=== PATIENT | male | born 1955 | race Caucasian/White ===

== ENCOUNTER → 2019-12-14 09:11 | Outpatient (CLI) | payer BC, SELFPAY ==
[2019-12-14 11:13] LABS: Alanine Aminotransferase 24 U/L (12-78); Albumin Level 4.1 g/dl (3.5-5.0); Albumin/Globulin Ratio 1.6 (1.1-1.8); Alkaline Phosphatase 89 U/L (38-126); Anion Gap 12.5 mEq/L (5-15); Aspartate Amino Transferase 33 U/L (17-59); Blood Urea Nitrogen 15 mg/dl (9-20); Calcium 9.5 mg/dl (8.4-10.2); Carbon Dioxide 27 mmol/L (22.0-30.0); Chloride 104 mmol/L (98-107); Chol/HDL Ratio 3.7 (1-3.5); Cholesterol 185 mg/dl (140-200); Estimated Glomerular Filt Rate 67 ml/min (>60); GFR (African American) 81 ML/MIN (>60); Globulin 2.6 g/dL (1.3-3.2); Glucose 85 mg/dl (74-100); HDL Cholesterol 50 mg/dl (40-60); Potassium 4.5 mmoL/L (3.5-5.1); Sodium 139 mmol/L (136-145); Total Protein,Serum 6.7 g/dl (6.3-8.2); Triglycerides 176 mg/dl (30-150); Uric Acid 5.6 mg/dl (3.5-8.5); VLDL Cholesterol 35 mg/dL (0-40)
[2019-12-14 11:24] LABS: Direct LDL Cholesterol 113.99 mg/dL (100-129)
== END ==
PROVIDERS: Visit Provider Family Medicine
DX: I10 Essential (primary) hypertension (principal); E78.5 Hyperlipidemia, unspecified; E79.0 Hyperuricemia without signs of inflammatory arthritis and tophaceous disease
CPT/HCPCS: 36415; 80053; 80061; 84550

== ENCOUNTER → 2020-07-13 09:32 | Outpatient (CLI) | payer BC, SELFPAY ==
[2020-07-13 10:31] LABS: Basophils % 0.5 % (0.1-2.0); Eosinophils # 0.2 K/mm3 (0.0-0.4); Eosinophils % 3.3 % (0.1-12.0); Hemoglobin 16.3 g/dL (14.1-18.0); Lymphocytes # 1.2 K/mm3 (0.7-4.5); Lymphocytes % 24.4 % (10-50); Mean Corpuscular HGB Conc 32.6 g/dL (31.8-35.4); Mean Corpuscular Volume 91.7 fl (80-94); Mean Platelet Volume 8.3 fl (7.4-10.4); Monocytes # 0.4 K/mm3 (0.1-1.0); Monocytes % 7.5 % (1.7-9.3); Neutrophils # 3.3 K/mm3 (1.8-7.8); Neutrophils % 64.3 % (37.0-80.0); Platelet Count 204 K/mm3 (142-424); Red Blood Count 5.45 M/mm3 (4.60-6.20); Red Cell Distribution Width 14.1 % (11.5-17.5); White Blood Count 5.1 K/mm3 (4.8-10.8)
[2020-07-13 11:19] LABS: Hemoglobin A1C 5.6 % (4.0-6.0)
[2020-07-13 11:20] LABS: Chol/HDL Ratio 3.6 (1-3.5); Cholesterol 164 mg/dl (140-200); HDL Cholesterol 45 mg/dl (40-60); Triglycerides 104 mg/dl (30-150); VLDL Cholesterol 21 mg/dL (0-40)
[2020-07-13 11:31] LABS: Direct LDL Cholesterol 96.07 mg/dL (100-129)
[2020-07-13 11:51] LABS: Prostate Specific Ag Screen 0.3 ng/ml (0.0-4.0)
[2020-07-14 15:20] LABS: LH 2.7 mIU/mL (1.7-8.6)
[2020-07-19 14:01] LABS: Testosterone, Total, LC/MS 261.8 ng/dL (264.0-916.0)
== END ==
PROVIDERS: Visit Provider General Practice
DX: E78.5 Hyperlipidemia, unspecified (principal); E29.1 Testicular hypofunction
CPT/HCPCS: 36415; 80061; 83002; 83036; 84403; 85025; G0103

== ENCOUNTER → 2021-06-25 07:50 | Outpatient (CLI) | payer BC, SELFPAY ==
[2021-06-25 08:26] LABS: Hematocrit 54.3 % (42.0-52.0); Hemoglobin 17.2 g/dL (14.1-18.0); Mean Corpuscular HGB Conc 31.7 g/dL (31.8-35.4); Mean Corpuscular Hemoglobin 31.7 pg (27.0-31.2); Platelet Count 220 K/mm3 (142-424); Red Blood Count 5.42 M/mm3 (4.60-6.20); Red Cell Distribution Width 14.1 % (11.5-17.5); White Blood Count 5.7 K/mm3 (4.8-10.8)
[2021-06-25 10:01] LABS: Hemoglobin A1C 5.6 % (4.0-6.0)
[2021-06-25 10:03] LABS: Alanine Aminotransferase 28 U/L (12-78); Albumin Level 4.6 g/dl (3.5-5.0); Albumin/Globulin Ratio 1.8 (1.1-1.8); Alkaline Phosphatase 81 U/L (38-126); Anion Gap 13.6 mEq/L (5-15); Aspartate Amino Transferase 36 U/L (17-59); Bilirubin,Total 1.2 mg/dl (0.2-1.3); Blood Urea Nitrogen 21 mg/dl (9-20); Calcium 9.5 mg/dl (8.4-10.2); Carbon Dioxide 25 mmol/L (22.0-30.0); Chloride 106 mmol/L (98-107); Estimated Glomerular Filt Rate 51 ml/min (>60); GFR (African American) 61 ML/MIN (>60); Globulin 2.6 g/dL (1.3-3.2); Glucose 87 mg/dl (74-100); Potassium 4.6 mmoL/L (3.5-5.1); Sodium 140 mmol/L (136-145); Total Protein,Serum 7.2 g/dl (6.3-8.2)
[2021-06-25 10:05] LABS: Chol/HDL Ratio 4.4 (1-3.5); Cholesterol 205 mg/dl (140-200); HDL Cholesterol 47 mg/dl (40-60); Triglycerides 147 mg/dl (30-150); VLDL Cholesterol 29 mg/dL (0-40)
[2021-06-25 10:16] LABS: Direct LDL Cholesterol 120.84 mg/dL (100-129)
[2021-06-25 10:34] LABS: Prostate Specific Ag Screen 0.4 ng/ml (0.0-4.0)
[2021-06-26 10:13] LABS: LH 4.7 mIU/mL (1.7-8.6)
[2021-07-01 20:09] LABS: Testosterone, Total, LC/MS 394.8 ng/dL (264.0-916.0)
== END ==
PROVIDERS: PCP Family Medicine; Visit Provider General Practice
DX: E34.9 Endocrine disorder, unspecified (principal); E79.0 Hyperuricemia without signs of inflammatory arthritis and tophaceous disease; F41.8 Other specified anxiety disorders; R73.09 Other abnormal glucose; K21.9 Gastro-esophageal reflux disease without esophagitis; M17.0 Bilateral primary osteoarthritis of knee; N40.0 Benign prostatic hyperplasia without lower urinary tract symptoms; N52.9 Male erectile dysfunction, unspecified; Z12.5 Encounter for screening for malignant neoplasm of prostate; Z13.220 Encounter for screening for lipoid disorders
CPT/HCPCS: 36415; 80053; 80061; 83002; 83036; 84403; 84550; 85014; 85018; 85048; 85049; G0103

== ENCOUNTER → 2022-02-21 10:00 | Outpatient (CLI) | payer BC, SELFPAY ==
[2022-02-21 10:06] LABS: Microscopic, Urine URINE MICROSCOPIC (MICROSCOPIC)
[2022-02-21 11:00] LABS: Basophils # 0.1 K/mm3 (0-0.2); Basophils % 0.8 % (0.1-2.0); Eosinophils # 0.4 K/mm3 (0.0-0.4); Eosinophils % 5.8 % (0.1-12.0); Hematocrit 44.3 % (42.0-52.0); Hemoglobin 14.3 g/dL (14.1-18.0); Lymphocytes # 1.6 K/mm3 (0.7-4.5); Mean Corpuscular HGB Conc 32.3 g/dL (31.8-35.4); Mean Corpuscular Hemoglobin 29.8 pg (27.0-31.2); Mean Platelet Volume 8.3 fl (7.4-10.4); Monocytes # 0.5 K/mm3 (0.1-1.0); Monocytes % 7.5 % (1.7-9.3); Neutrophils # 4.2 K/mm3 (1.8-7.8); Neutrophils % 61.9 % (37.0-80.0); Platelet Count 234 K/mm3 (142-424); Red Blood Count 4.82 M/mm3 (4.60-6.20); Red Cell Distribution Width 16.5 % (11.5-17.5); White Blood Count 6.8 K/mm3 (4.8-10.8)
[2022-02-21 11:30] LABS: Alanine Aminotransferase 19 U/L (12-78); Albumin Level 3.8 g/dl (3.5-5.0); Albumin/Globulin Ratio 1.6 (1.1-1.8); Alkaline Phosphatase 142 U/L (38-126); Anion Gap 12.7 mEq/L (5-15); Aspartate Amino Transferase 24 U/L (17-59); Blood Urea Nitrogen 16 mg/dl (9-20); Calcium 9.4 mg/dl (8.4-10.2); Carbon Dioxide 30 mmol/L (22.0-30.0); Chloride 103 mmol/L (98-107); Chol/HDL Ratio 4.1 (1-3.5); Cholesterol 179 mg/dl (140-200); Estimated Glomerular Filt Rate 67 ml/min (>60); GFR (African American) 81 ML/MIN (>60); Globulin 2.4 g/dL (1.3-3.2); Glucose 90 mg/dl (74-100); HDL Cholesterol 44 mg/dl (40-60); Potassium 4.7 mmoL/L (3.5-5.1); Sodium 141 mmol/L (136-145); Total Protein,Serum 6.2 g/dl (6.3-8.2); Triglycerides 181 mg/dl (30-150); Uric Acid 5.3 mg/dl (3.5-8.5); VLDL Cholesterol 36 mg/dL (0-40)
[2022-02-21 11:50] LABS: Direct LDL Cholesterol 104.96 mg/dL (100-129)
[2022-02-21 12:02] LABS: Appearance,Urine CLEAR (Clear); Blood, Urine TRACE-I (Negative); Color,Urine YELLOW (Yellow); Glucose,Urine (UA) Negative (Negative); Ketones,Urine Negative (Negative); Leukocyte Esterase,Urine Negative (Negative); Nitrate,Urine Negative (Negative); Protein,Urine Negative (Negative); Specific Gravity, Urine 1.025 (1.005-1.030); Urobilinogen,Urine 0.2 EU/dl (0.2)
[2022-02-21 12:04] LABS: Prostate Specific Ag Screen 0.4 ng/ml (0.0-4.0)
[2022-02-21 13:23] LABS: Bilirubin,Urine 2+ (Negative)
[2022-02-21 13:24] LABS: Squamous Epithelial Cell,Urine Occasional #/hpf (0-5)
== END ==
PROVIDERS: PCP Family Medicine; Visit Provider Family Medicine
DX: I10 Essential (primary) hypertension (principal); E78.5 Hyperlipidemia, unspecified; E79.0 Hyperuricemia without signs of inflammatory arthritis and tophaceous disease; R35.0 Frequency of micturition; N52.9 Male erectile dysfunction, unspecified; Z12.5 Encounter for screening for malignant neoplasm of prostate
CPT/HCPCS: 36415; 80053; 80061; 81001; 84550; 85025; G0103